=== PATIENT | female | born 1990 | race American Indian/Alaskan Native ===

== ENCOUNTER 2019-03-25 07:58 | Emergency (ER) | payer SELFPAY ==
--- NOTE | 2019-03-25 10:55 | Emergency Department Report ---
ED Female HPI - General Chief complaint: Urogenital-Female Stated complaint: CONSTANT URINATING Time Seen by Provider: 03/25/19 08:20 Source: patient Mode of arrival: Ambulatory Limitations: No Limitations - History of Present Illness Complaint: dysuria Location: suprapubic Radiation: suprapubic Severity: mild Quality: burning Consistency: intermittent Improves with: none Worsens with: urination Are you Now?: No Associated Symptoms: dysuria. denies: vaginal discharge, vaginal bleeding, abdominal pain, nausea/vomiting, rash, shortness of breath, syncope, weakness - Related Data Previous Rx's Medication Instructions Recorded Last Taken Type Nitrofurantoin [place]/M-Cryst 100 mg PO Q12HR #20 capsule 03/25/19 Unknown Rx [Macrobid CAP] Phenazopyridine [Pyridium] 200 mg PO TID #9 tab 03/25/19 Unknown Rx Allergies Allergy/AdvReac Type Severity Reaction Status Date / Time No Known Allergies Allergy Unverified 03/25/19 08:00 ED Review of Systems ROS: Stated complaint: CONSTANT URINATING Other details as noted in HPI Constitutional: denies: chills, fever Eyes: denies: eye pain, eye discharge, vision change ENT: denies: ear pain, throat pain Respiratory: denies: cough, shortness of breath, wheezing Cardiovascular: denies: chest pain, palpitations Endocrine: no symptoms reported Gastrointestinal: denies: abdominal pain, nausea, diarrhea Genitourinary: denies: urgency, dysuria, discharge Musculoskeletal: denies: back pain, joint swelling, arthralgia Skin: denies: rash, lesions Neurological: denies: headache, weakness, paresthesias Psychiatric: denies: anxiety, depression Hematological/Lymphatic: denies: easy bleeding, easy bruising ED Past Medical Hx - Medications Home Medications: Home Medications Medication Instructions Recorded Confirmed Last Taken Type Nitrofurantoin [place]/M-Cryst 100 mg PO Q12HR #20 capsule 03/25/19 Unknown Rx [Macrobid CAP] Phenazopyridine [Pyridium] 200 mg PO TID #9 tab 03/25/19 Unknown Rx ED Physical Exam - General Limitations: No Limitations General appearance: alert, in no apparent distress - Head Head exam: Present: atraumatic, normocephalic - Eye Eye exam: Present: normal appearance, PERRL, EOMI Pupils: Present: normal accommodation - ENT ENT exam: Present: normal exam, normal orophraynx, mucous membranes moist, TM's normal bilaterally - Neck Neck exam: Present: normal inspection - Respiratory Respiratory exam: Present: normal lung sounds bilaterally. Absent: respiratory distress - Cardiovascular Cardiovascular Exam: Present: regular rate, normal rhythm. Absent: systolic murmur, diastolic murmur, rubs, gallop - GI/Abdominal GI/Abdominal exam: Present: soft, tenderness, normal bowel sounds - Extremities Exam Extremities exam: Present: normal inspection - Back Exam Back exam: Present: normal inspection - Neurological Exam Neurological exam: Present: alert, oriented X3 - Psychiatric Psychiatric exam: Present: normal affect, normal mood - Skin Skin exam: Present: warm, dry, intact, normal color. Absent: rash ED Medical Decision Making - Medical Decision Making 28-year-old Female with a Urinary Tract Infection. There Was a Delay in Discharge Due To Receiving the Lab Report Critical care attestation.: If time is entered above; I have spent that time in minutes in the direct care of this critically ill patient, excluding procedure time. ED Disposition Clinical Impression: Dysuria Disposition: DC-01 TO HOME OR SELFCARE Is pt being admited?: No Does the pt Need Aspirin: No Condition: Stable Instructions: Phenazopyridine (By mouth), Urinary Tract Infection in Women (ED), Dysuria (ED) Prescriptions: Nitrofurantoin [place]/M-Cryst [Macrobid CAP] 100 mg PO Q12HR #20 capsule Phenazopyridine [Pyridium] 200 mg PO TID #9 tab Referrals: ANDREE BUCHANAN MD [Primary Care Provider] - 3-5 Days
[2019-03-25 11:07] LABS: HCG Qualitative,Urine Negative (Negative)
[2019-03-25 11:08] LABS: Bilirubin,Urine NEG (Negative); Blood,Urine LG (Negative); Color,Urine Yellow (Yellow); Urobilinogen,Urine < 2.0 mg/dL (<2.0)
[2019-03-25 11:10] LABS: RBC,Urine > 182.0 /HPF (0.0-6.0); WBC,Urine > 182.0 /HPF (0.0-6.0)
[2019-03-25 11:46] VITALS: BP 112/62
== END 2019-03-25 11:45 | disposition home or self-care (01) ==
LOC: ED 07:58
DX: R30.0 Dysuria (principal)
CPT/HCPCS: 81001; 81025

== ENCOUNTER 2019-10-28 08:26 | Emergency (ER) | payer SELFPAY ==
[2019-10-28] MEDS ORDERED: IBUPROFEN 800 MG TAB PO ONE (10:45)
--- NOTE | 2019-10-28 10:48 | Emergency Department Report ---
Minor Respiratory - HPI Chief Complaint: Headache Stated Complaint: FLU SX Time Seen by Provider: 10/28/19 10:39 Duration: 2 Days Severity: mild Minor Respiratory: Yes Able to Tolerate Fluids, No Rhinorrhea, No Sore Throat, No Ear Pain, No Cough, No Sick Contacts, No Hemoptysis, No Shortness of Breath, No Fever Other History: 28 YO AA FEMALE COMES TO ER CO OF N/V AND BODY ACHES FOR 2 DAYS. SHE DENIES FEVER. SHE THINKS SHE HAS FLU. LMP 10/02 ED Review of Systems ROS: Stated complaint: FLU SX Other details as noted in HPI Comment: All other systems reviewed and negative ED Past Medical Hx - Past Medical History Previous Medical History?: No - Surgical History Past Surgical History?: No - Family History Family history: no significant - Social History Smoking Status: Never Smoker Substance Use Type: None - Medications Home Medications: Home Medications Medication Instructions Recorded Confirmed Last Taken Type Ondansetron [Zofran Odt] 4 mg PO Q8HR PRN #10 tab.rapdis 10/28/19 Unknown Rx Minor Respiratory Exam - Exam General: Vital signs noted. No distress. Alert and acting appropriately. HEENT: Yes Moist Mucous Membranes, No Pharyngeal Erythema, No Pharyngeal Exudates, No Rhinorrhea, No Conjuctival Injection, No Frontal Tenderness, No Maxillary Tenderness Ear: Neither TM Bulge, Neither TM Erythema, Neither EAC Pain, Neither EAC Discharge Neck: Yes Supple, No Adenopathy Lungs: Yes Good Air Exchange, No Wheezes, No Ronchi, No Stridor, No Cough, No Labored Respirations, No Retractions, No Use of Accessory Muscles, No Other Abnormal Lung Sounds Heart: Yes Regular, No Murmur Abdomen: Yes Normal Bowel Sounds, No Tenderness, No Peritoneal Signs Skin: No Rash, No Edema Neurologic: Alert and oriented, no deficits. Musculoskeletal: Unremarkable. ED Course Vital Signs 10/28/19 08:44 Temperature 98.9 F Pulse Rate 105 H Respiratory 16 Rate Blood Pressure 119/63 O2 Sat by Pulse 100 Oximetry ED Medical Decision Making - Radiology Data Radiology results: report reviewed, image reviewed - Medical Decision Making Labs 10/28/19 10/28/19 12:14 Unknown Urine Color Yellow Urine Turbidity Slightly-cloudy Urine pH 5.0 Ur Specific [place] 1.035 H Urine Protein 30 mg/dl Urine Glucose (UA) Neg Urine Ketones Tr Urine Blood Neg Urine Nitrite Neg Urine Bilirubin Neg Urine Urobilinogen < 2.0 Ur Leukocyte Esterase Sm Urine WBC (Auto) 6.0 Urine RBC (Auto) 13.0 U Epithel Cells (Auto) 4.0 Urine Bacteria (Auto) 1+ Urine Mucus 3+ Urine HCG, Qual Positive A Influenza A (Rapid) Negative Influenza B (Rapid) Negative Vital Signs 10/28/19 10/28/19 08:44 11:00 Temperature 98.9 F Pulse Rate 105 H Respiratory 16 16 Rate Blood Pressure 119/63 O2 Sat by Pulse 100 Oximetry UA NOTED UPREG POS LMP MID DEC G3 NO VAG BLEEDING, DC, OR ABD PAIN NO VAG DC NO BACK PAIN NO DYSURIA ABD EXAM UNREMARKABLE DID NOT KNOW ; NOR DID SHE SUSPECT IT FLU NEG PT EDUCATED ON CARE DC HOME WITH OBGYN FOLLOW UP - Differential Diagnosis FLU/URTI/UTI Critical care attestation.: If time is entered above; I have spent that time in minutes in the direct care of this critically ill patient, excluding procedure time. ED Disposition Clinical Impression: Disposition: DC-01 TO HOME OR SELFCARE Is pt being admited?: No Does the pt Need Aspirin: No Condition: Stable Instructions: (ED) Additional Instructions: OVER THE COUNTER VITAMIN ZOFRAN FOR NAUSEA TYLENOL FOR PAIN HYDRATE WELL FOLLOW UP WITH OBGYN [facility] REFERRAL BELOW Prescriptions: Ondansetron [Zofran Odt] 4 mg PO Q8HR PRN #10 tab.rapdis PRN Reason: Vomiting Referrals: DEVAN HERRERA MD [Staff Physician] - 3-5 Days Time of Disposition: 11:47
[2019-10-28 12:48] LABS: Bacteria,Urine 1+ /HPF (Negative); Bilirubin,Urine NEG (Negative); Blood,Urine NEG (Negative); Color,Urine Yellow (Yellow); Mucus,Urine 3+ /HPF; Urobilinogen,Urine < 2.0 mg/dL (<2.0)
[2019-10-28 13:26] LABS: HCG Qualitative,Urine Positive (Negative)
[2019-10-28 13:54] VITALS: BP 104/54
== END 2019-10-28 13:54 | disposition home or self-care (01) ==
LOC: ED 08:26
DX: O26.891 Other specified pregnancy related conditions, first trimester (principal); R51 Headache; Z79.899 Other long term (current) drug therapy; Z3A.00 Weeks of gestation of pregnancy not specified
CPT/HCPCS: 81001; 81025; 87400